=== PATIENT | female | born 1955 | race Caucasian/White ===

== ENCOUNTER 2018-06-03 18:15 | Day surgery (SDC) | payer OTHER ==
[~2018-06-03] VITALS: Ht 165.1 cm; Wt 70.0 kg
[2018-06-03] VITALS (8 sets, daily range): BP systolic 99–119; BP diastolic 58–73; PULSE 70–84; TEMP 98.1–98.4
[~2018-06-03 18:15] MED LIST: AZO-STANDARD95 MG PO; CELEBREX 200MG200 MG PO; CELEBREX50 MG PO; DIFLUCAN150 MG PO; GLUCOSAMINE 1000 PO; LEVAQUIN 5500 MG/TA1 PO; MULTI VITAMINS1 TAB PO; NEXIUM 40MG40 MG PO; NORCO 325 MG-51 TAB PO; SENOKOT S 50 MG1 TAB PO; TRICOR 48MG48 MG PO; TRICOR145 MG PO
[2018-06-03] MEDS ORDERED: PROTONIX 40MG T40 MG PO (20:48)
[2018-06-04] VITALS: BP 108/67; PULSE 81; TEMP 98.5
[2018-06-04 04:10] VITALS: BP 97/60; PULSE 72; TEMP 98.1
[2018-06-04 07:45] VITALS: BP 105/54; PULSE 79; TEMP 97.7
== END 2018-06-04 09:48 | disposition home or self-care (01) ==
LOC: SDCO 18:15 → SURG 18:17 → SDCO 06-04 09:48
DX: N20.1 Calculus of ureter (principal); E78.00 Pure hypercholesterolemia, unspecified; K21.9 Gastro-esophageal reflux disease without esophagitis; M19.90 Unspecified osteoarthritis, unspecified site
CPT/HCPCS: OP; C1769; C2617; J1100; J1885; J2405; J2704; J3010; Q9967

== ENCOUNTER 2022-06-17 05:29 | Day surgery (SDC) | payer OTHER ==
[~2022-06-17] VITALS: Ht 165.1 cm; Wt 76.0 kg
[2022-06-17] VITALS (11 sets, daily range): BP systolic 97–119; BP diastolic 53–73; PULSE 60–72; TEMP 97.5–97.7
[~2022-06-17 05:29] MED LIST changes: +PROTONIX 40MG T40 MG PO
[2022-06-17] MEDS ORDERED: NEURONTIN400 MG/CAP PO (06:21)
[2022-06-17] MEDS ORDERED: MIRALAX510G PO (06:21)
[2022-06-17] MEDS ORDERED: HYGROTON 2525 MG/TAB PO (06:21)
[2022-06-17] MEDS ORDERED: VOLTAREN GEL 1%1 TU TP (06:22)
[2022-06-17] MEDS ORDERED: ZOCOR 10MG10 MG PO (06:22)
[2022-06-17] MEDS ORDERED: FLEXERIL 1010 MG/TAB PO (06:22)
--- NOTE | 2022-06-17 07:15 | NUR ---
The patient has been taken back to the OR by COTY Cohn. The patient's chart was sent with her to surgery. The patient's belongings were taken over to the recovery room and will be transferred with the patient post operatively. The patient's was shown back to the surgery waiting room.
--- NOTE | 2022-06-17 10:56 | NUR ---
Pt recently arrived to the floor from [facility]. She is drowsy but does wake easily when spoken to. No pain complaints at this time. SCDs on bilaterally and IV fluids infusing. Lung sounds clear, heart rate regular. Lap sites all well approximated with no drainage noted. Escamilla catheter to dependent drainage. Call light within reach
[2022-06-17] MEDS ORDERED: MOTRIN 800800 MG/TAB PO ×2 (16:38→20:33)
--- NOTE | 2022-06-17 21:58 | NUR ---
Patient assessed around 2049. Given scheduled Toradol for pain per orders. Continues on IV fluids per orders. Indwelling downey catheter with clear yellow urine. Voices no questions, needs, or concerns at this time. In bed with call light within reach.
[2022-06-18 04:00] VITALS: BP 94/56; PULSE 75; TEMP 97.5
--- NOTE | 2022-06-18 06:37 | NUR ---
Given scheduled Toradol, Acetaminophen, and PRN Roxicodone during the night. Patient voices no questions, needs, or concerns at this time. In bed with call light within reach.
[2022-06-18 07:32] VITALS: BP 100/58; PULSE 63; TEMP 97.9
--- NOTE | 2022-06-18 07:45 | NUR ---
Pt assessment complete. Pt is laying in bed upon entry, she is A/O x4. Her breathing is even and unlabored on RA. Denies SOB. Pt reports abdominal pain 5/10, denies N/V, is passing gas with no BM. Escamilla catheter removed, instructions reviewed with patient. No needs at this time. Call light within reach.
[2022-06-18 08:29] LABS: BASO % 0.1 % (0.0-2.0); GRAN # 11.6 K/mm3 (1.4-6.5); GRAN % 80.2 % (42.2-75.2); HEMOGLOBIN 11.7 g/dl (12.5-16.0); LYMPH # 1.6 K/mm3 (1.2-3.4); LYMPH % 11.2 % (20.0-51.0); MEAN CELL VOLUME 93 fl (80.0-100.0); MEAN CORPUSCULAR HEMOGLOBIN 32 pg (27-31); MEAN CORPUSCULAR HGB CONC 34 g/dl (33.0-37.0); MONO # 1.2 K/mm3 (0.1-0.6); MONO % 7.9 % (1.7-9.3); PLATELET COUNT 283 K/mm3 (130-400); RED BLOOD COUNT 3.71 M/mm3 (4.10-5.30); REDCELL DISTRIBUTION WIDTH-CV 13.6 % (11.5-14.5)
[2022-06-18 09:13] LABS: HEMATOCRIT 34.3 % (37.0-47.0)
--- NOTE | 2022-06-18 09:40 | NUR ---
Pt ambulated in hallway with steady gait with stand by assist from staff.
[2022-06-18 11:48] VITALS: BP 101/61; PULSE 66
--- NOTE | 2022-06-18 14:49 | NUR ---
Sw met with pt to complete intake. Pt lives at home with her , Davey @ [phone]. Pt is independent and drives and does not use any DME. Pt Pcp is Dr. Francois at [facility], [place] and [place] [facility] not interested in [facility]. DC: Home.
[2022-06-18] MEDS ORDERED: NORCO 325 MG-51 TAB PO (15:07)
--- NOTE | 2022-06-18 15:40 | NUR ---
Pt up to the restroom to urinate several times. Ambulated in hallways. IV to Feliz barber dc'semaj. Discharge instructions reviewed with her all questions answered. Pt walked out of facility by staff member at this time.
== END 2022-06-18 15:40 | disposition home or self-care (01) ==
LOC: SDCO 05:29 → SURG 10:25 → SDCO 06-18 15:40
PROVIDERS: Urology
DX: N81.2 Incomplete uterovaginal prolapse (principal)
CPT/HCPCS: A4314; A9284; C1781; J0690; J1100; J1885; J1956; J2405; J2704; J3010; J7120